=== PATIENT | male | born 1945 | race Caucasian/White ===

== ENCOUNTER → 2017-04-30 | Outpatient (CLI) | payer OTHER ==
[~2017-04-30] MED LIST: BNT10 PO; CLC6 PO; GADAVIST IV PRN; METO25TA56 PO; OMEG10007 PO; PRED20TA PO; SIMV40TA2 PO
--- NOTE | 2017-04-30 12:42 | DIAGNOSTIC IMAGING REPORT ---
MR ANGIOGRAM OF THE BRAIN CLINICAL HISTORY: Migraine headache. COMPARISON STUDY: MRI of the brain dated 04/30/2017. TECHNIQUE: 3-D [id number] MR angiography of the intracranial circulation is performed. 3-D tumble views are created and assessed. IV contrast was not administered for this examination. FINDINGS: A left posterior communicating artery is identified. The internal carotid arteries are widely patent bilaterally, as are the anterior and middle cerebral arteries. The vertebrobasilar system and posterior cerebral arteries are widely patent. The vertebral arteries are codominant. There is no aneurysm, high-grade stenosis, or focal vessel cutoff seen throughout the intracranial circulation. The brain parenchyma is normal as visualized. IMPRESSION: Unremarkable MR angiogram of the brain. Electronically signed by: Jean Carlos Stern M.D. 04/30/2017 12:41 PM Dictated Date/Time: 04/30/2017 12:38 PM
--- NOTE | 2017-04-30 13:17 | DIAGNOSTIC IMAGING REPORT ---
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 TECHNIQUE: Multisequence, multiplanar MR imaging of the brain was performed before and after the administration of intravenous contrast. IV contrast: 6.5 mL of Gadavist. COMPARISON: 07/06/2007. FINDINGS: Proportional ventricular and sulcal prominence, likely age-related parenchymal volume loss. Brain parenchyma normal in appearance with preserved vences-white differentiation. No mass effect or midline shift. No restricted diffusion to suggest acute ischemia. No hemorrhage. No extra-axial fluid collection. 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 T2 skull base flow voids preserved. No abnormal parenchymal enhancement. Bone marrow signal intensity within the calvarium within normal limits. IMPRESSION: 1. No acute intracranial pathology. No abnormal enhancement. Electronically signed by: Misha Gil M.D. 04/30/2017 1:15 PM Dictated Date/Time: 04/30/2017 1:08 PM
== END | disposition home or self-care (01) ==
LOC: C.MRI 11:31
PROVIDERS: ATTEND Psychiatry & Neurology Neurology
DX: G45.0 Vertebro-basilar artery syndrome (principal); G43.109 Migraine with aura, not intractable, without status migrainosus

== ENCOUNTER 2020-04-02 13:29 | Inpatient (IN) ==
--- OUTSIDE RECORDS SUMMARY | 2020-04-02 13:31 | External Medical Summary | Continuity of Care Document ---
:1945 Author Name Bessie Morel Address Unavailable Unavailable , Care Team Providers Name Role Phone Shahbaz Morel Unavailable [email or web address] Unavailable Unavailable Problems Active medical history not documented Allergies and Adverse Reactions Allergy history not documented Medications Medications not documented Procedures Procedures not documented Immunizations Immunizations not documented Plan of Treatment Planned Observations Planned Goals not documented Results No Known Results Results not documented
--- OUTSIDE RECORDS SUMMARY | 2020-04-02 13:31 | External Medical Summary | Continuity of Care Document ---
:1945 Author Name Bessie Morel Address Unavailable Unavailable , Care Team Providers Name Role Phone Shahbaz Morel Unavailable [email or web address] Unavailable Unavailable Problems Active medical history not documented Allergies and Adverse Reactions Allergy history not documented Medications Medications not documented Procedures Procedures not documented Immunizations Immunizations not documented Plan of Treatment Planned Observations Planned Goals not documented Results No Known Results Results not documented
[2020-04-02] MEDS ORDERED: SODIUM CHLORIDE 0.9% 1000ML 1,000 ML IV SCH (14:00)
[2020-04-02] MEDS ORDERED: SODIUM CHLORIDE 0.9% 1000ML 1,000 ML IV ONE (14:13)
[2020-04-02] MEDS ORDERED: ONDANSETRON INJ 2 MG/ML 2 ML VIAL IV STA (14:15)
[2020-04-02 14:32] LABS: Basophils # (auto) 0.01 K/uL (0-0.2); Basophils % (auto) 0.1 %; Eosinophils # (auto) 0.06 K/uL (0-0.5); Eosinophils % (auto) 0.3 %; Hemoglobin 14.9 g/dL (14.0-18.0); Immature Granulocytes # (auto) 0.07 K/uL (0.00-0.02); Immature Granulocytes % (auto) 0.4 %; Lymphocytes # (auto) 1.07 K/uL (1.2-3.4); Lymphocytes % (auto) 6.1 %; Mean Corpuscular Hemoglobin 31.8 pg (25-34); Mean Corpuscular Hgb Conc 34.7 g/dL (32-36); Mean Corpuscular Volume 91.7 fL (80-100); Mean Platelet Volume 10.3 fL (7.4-10.4); Monocytes # (auto) 0.93 K/uL (0.11-0.59); Monocytes % (auto) 5.3 %; Neutrophils # (auto) 15.43 K/uL (1.4-6.5); Neutrophils % (auto) 87.8 %; Platelet Count 297 K/uL (130-400); RDW Coefficient of Variation 13.8 % (11.5-14.5); RDW Standard Deviation 45.9 fL (36.4-46.3); Red Blood Count 4.69 M/uL (4.7-6.1); White Blood Count 17.57 K/uL (4.8-10.8)
[2020-04-02] MEDS ORDERED: HYDROmorphone INJ 0.5 MG/0.5 ML SYR IV STA ×2 (14:34→15:48)
[2020-04-02] MEDS ORDERED: IOVERSOL 100ml IV ONE (14:47)
[2020-04-02 14:49] LABS: Albumin Level 3.7 gm/dl (3.4-5.0); Calcium 10.3 mg/dl (8.5-10.1); Creatinine Clr Calc Pharmacy 65.2 ml/min; Est GFR (African American) 93.5; Est GFR (Non-African American) 80.7; Potassium 3.4 mmol/L (3.5-5.1)
[2020-04-02 14:52] LABS: Globulin 3.6 gm/dl (2.5-4.0); Total Protein 7.3 gm/dl (6.4-8.2)
--- NOTE | 2020-04-02 15:30 | CT Scan Report ---
ABDOMEN AND PELVIS CT WITH IV CONTRAST CT DOSE: 293.89 mGy.cm HISTORY: Acute generalized abdominal pain with history of Crohn's disease Crohns, V, abd pain today TECHNIQUE: Multiaxial CT images of the abdomen and pelvis were performed following the IV administrat ion of 94 cc of Optiray 320, A dose lowering technique was utilized adhering to the principles of AL SANDEEP. COMPARISON STUDY: CT abdomen and pelvis 04/18/2011 FINDINGS: Lung bases are clear. No pneumatosis or pneumoperitoneum. The imaged inferior cardiac chambers are un remarkable. The spleen, mildly atrophic pancreas, adrenal glands, and gallbladder appear unremarkable . 9 mm probable cyst of the left hepatic lobe. Course calcification of the posterior right hepatic lo be. See of the hepatic and portal veins. Subcentimeter bilateral renal hypodensities suggest probable cysts. 11 mm cyst of the interpolar righ t kidney. 5 mm nonobstructing calculus of the interpolar right kidney. There are several punctate non obstructing calculi of the left kidney. No ureteral calculi or obstructive uropathy. Prostamegaly wit h partial urinary bladder distention. No aortic aneurysm or adenopathy. Moderate to marked fluid-filled gastric distention. Dilated small bowel air-fluid levels measure up t o 3.3 cm. The terminal ileum is decompressed. There is a long segment of terminal ileum wall thickeni ng with mucosal hyperemia. Luminal narrowing involves the ilium on image 287 series 3 and image 290 s eries 3 with dilated loop of bowel seen proximal to this. Mild interloop edema within the right midab domen. Colonic diverticulosis without acute diverticulitis. Wall thickening with ahaustral fold patte rn involves the splenic flexure on image 188 series 3. Moderate fecal retention. Noninflamed appendix . Mural fibrofatty changes of the terminal ileum. Trace free fluid of the right pericolic gutter and dependent pelvis. Unremarkable soft tissues. Bones appear intact. 8 mm sclerotic focus of the right sacrum suggest prob able bone island. IMPRESSION: 1. High-grade small bowel obstruction with transition point involving a loop of ileum, likely seconda ry to adhesions versus small bowel stricture. 2. Reactive interloop edema with trace abdominal pelvic ascites. No pneumatosis or pneumoperitoneum. 3. Long segment wall thickening of the terminal ileum with wall thickening of the splenic flexure sug gest acute inflammatory skin lesions associated with patient's reported clinical history of Crohn's d isease. 4. Nonobstructing bilateral nephrolithiasis. 5. Additional findings as above. ACT 112: Negative or not required by law. The above report was generated using voice recognition software. It may contain grammatical, syntax o r spelling errors. Electronically signed by: Chris Fabian M.D. 04/02/2020 3:28 PM
[2020-04-02] MEDS ORDERED: PIPERACILLIN/TAZOBACTAM 4.5 GM/120 ML BAG IV ONE (15:48)
[2020-04-02] MEDS ORDERED: PIPERACILL/TAZOBAC CONSULT ACTIVE PRN (15:48)
[2020-04-02] MEDS ORDERED: ONDANSETRON INJ 2 MG/ML 2 ML VIAL ONE (16:23)
[2020-04-02] MEDS ORDERED: ONDANSETRON INJ 2 MG/ML 2 ML VIAL IV PRN (16:37)
[2020-04-02] MEDS ORDERED: ZOLPIDEM TARTRATE 5 MG TAB PO PRN (16:37)
[2020-04-02 16:51] LABS: Appearance Urine Clear (Clear); Bilirubin Urine Negative (Negative); Blood Urine Negative (Negative); Color Urine Yellow; Glucose Urine UA Negative (Negative); Ketones Urine Negative (Negative); Leukocyte Esterase Urine Negative (Negative); Nitrite Urine Negative (Negative); Protein Urine Negative (Negative); Specific Gravity Urine > 1.045 (1.000-1.030); Urobilinogen Urine Negative (Negative); pH Urine 6.5 (4.5-7.5)
--- NOTE | 2020-04-02 16:55 | History & Physical Report ---
Date of Service April 02, 2020 Assessment & Plan (1) Small bowel obstruction: Symptomatic since last evening CT of the abdomen and pelvis revealed high-grade small bowel obstruction with transition point involving a loop of ileum, likely secondary to adhesions versus small bowel stricture We will keep him n.p.o. and NG tube with low suction Pain medications as needed Intravenous Zosyn for possible infection with increasing white count GI and surgery have been consulted (2) Crohn disease: History of Crohn's disease without any treatment for the last 9 years EGD and colonoscopy about 5 weeks ago were unremarkable CT of the chest and abdomen about 6 weeks ago were unremarkable as well No symptoms of active Crohn's at this time except SBO with edema of the intestine on CAT scan Will likely need intravenous steroid Await GI input (3) Lumbar disc herniation: History of lumbar disc herniation and recent course of Medrol Dosepak Has been on gabapentin for pain control (4) Dyslipidemia: Has been on a statin (5) A-fib: Atrial fibrillation not on any anticoagulation We will get EKG to document the rhythm We will give intravenous Lopressor while n.p.o. DVT prophylaxis Subcu heparin Status Full History of Present Illness Chief Complaint: Abdominal pain, distention with nausea and vomiting since last evening Primary Care Provider: Maria T Green, He is a 74-year-old male with significant past medical history of Crohn's disease-inactive for the last 9 years, hypertension, hyperlipidemia, history of atrial fibrillation and lumbar disc herniation has been complaining of abdominal discomfort with distention since last evening. His symptoms started following suffer last evening and discomfort continued throughout the night. He has had nausea with 2 episodes of vomiting until he came to the emergency room. He has had 1 bowel movement since last night. He denies any fever and/or chills. Denies any abnormalities in his bowel movement. No other extraintestinal manifestations of Crohn's. Denies any chest pain, palpitation or shortness of breath. Noted to have high-grade small bowel obstruction on CT of the abdomen and pelvis and following that GI and surgery services were consulted and he was admitted to telemetry unit for continuation of care. Allergies Allergy/AdvReac Type Severity Reaction Status Date / Time mercaptopurine AdvReac PANCREATITI Unverified 04/02/20 15:33 S mesalamine [From Lialda] AdvReac PERICARDITI Unverified 04/02/20 15:31 S Home Medications Home Medications Medication Instructions Recorded Confirmed Type atenolol 25 mg PO DAILY 04/02/20 04/02/20 History atorvastatin 10 mg PO DAILY 04/02/20 04/02/20 History cholecalciferol (vitamin D3) 50 mcg PO DAILY 04/02/20 04/02/20 History coenzyme Q10 [CoQ-10] 100 mg PO DAILY 04/02/20 04/02/20 History gabapentin 300 mg PO HS 04/02/20 04/02/20 History lutein 0 mg PO DAILY 04/02/20 04/02/20 History multivitamin [Multiple Vitamin] 1 tab PO DAILY 04/02/20 04/02/20 History omega-3 fatty acids [Fish Oil] 1,000 mg PO DAILY 04/02/20 04/02/20 History ondansetron HCl 8 mg PO DAILY PRN 04/02/20 04/02/20 History potassium chloride 10 meq PO BID 04/02/20 04/02/20 History terazosin 1 mg PO BID 04/02/20 04/02/20 History Past Med/Surg History Medical History (Updated 04/02/20 @ 16:50 by Melanie Bernstein MD) A-fib Crohn disease Dyslipidemia Lumbar disc herniation Social History Smoking Status: Former smoker current occupational status: employed current occupation: Psychiatrist Feels Safe at Home: Yes Review of Systems Review of Systems: All systems reviewed & are unremarkable except as noted in HPI & below Physical Exam Physical Exam: Lying in bed comfortably but anxious Constitutional: well developed, well nourished and + acute distress (Abdominal distention and discomfort with nausea); not ill appearing Eyes: PERRL, conjunctivae normal, anicteric sclerae ENMT: external ear and nose normal, oropharynx normal Neck: trachea midline, no thyromegaly Respiratory: no respiratory distress Auscultation: lungs clear to auscultation bilaterally Cardiovascular: Rate/Rhythm: regular rate and regular rhythm Heart Sounds: no murmur Extremities: no edema Gastrointestinal (Abdomen): Inspection/Auscultation: + abdomen distended and normal bowel sounds Percussion/Palpation: + abdomen tender (Epigastrium) and abdomen soft Musculoskeletal: No acute arthritis in any joint Neurologic: Alert, awake and oriented x3. No focal sensory and/or motor deficit appreciated Psychiatric: A+Ox3, euthymic affect Lymphatic: no cervical or axillary lymphadenopathy Results & Data Results & Data ([facility]) Vital Signs (Past 12 Hours) Vital Signs Temp Pulse Resp BP Pulse Ox 04/02/20 14:30 63 17 135/77 04/02/20 14:14 17 156/89 H 04/02/20 13:35 36.7 C 76 20 132/77 98 Laboratory Results Short CBC 04/02/20 Range/Units 14:10 WBC 17.57 H (4.8-10.8) K/uL Hgb 14.9 (14.0-18.0) g/dL Hct 43.0 (42-52) % Plt Count 297 (130-400) K/uL BMP 04/02/20 14:10 Sodium 141 Potassium 3.4 L Chloride 106 Carbon Dioxide 28 BUN 23 H Creatinine 0.94 Glucose 132 H Calcium 10.3 H Liver Function 04/02/20 Range/Units 14:10 Total Bilirubin 1.0 (0.2-1) mg/dl AST 18 (15-37) U/L ALT 18 (12-78) U/L Alkaline Phosphatase 69 (45-117) U/L Albumin 3.7 (3.4-5.0) gm/dl Medications Administered Current Inpatient Medications Sodium Chloride (Nss 1000ml) 1,000 mls @ 125 mls/hr IV .Q8H ADELITA Stop: 05/02/20 13:59 Potassium Chloride/Sodium Chloride (Normal Saline W/20 Meq Kcl) 20 meq in 1,000 mls @ 100 mls/hr IV .Q10H ADELITA Stop: 05/02/20 16:44 Miscellaneous Information (Piperacill/Tazobac Consult Active) 1 ea N/A UD PRN PRN Reason: Consult Stop: 05/02/20 15:47 Morphine Sulfate (Morphine Sulfate 2 Mg/Ml Carp) 2 mg IV Q3H PRN PRN Reason: Chest Pain Stop: 04/16/20 16:36 Ondansetron HCl (Ondansetron Inj 2 Mg/Ml 2 Ml Vial) 4 mg IV Q6H PRN PRN Reason: Nausea Stop: 05/02/20 16:36 Zolpidem Tartrate (Zolpidem Tartrate 5 Mg Tab) 5 mg PO HS PRN PRN Reason: Sleep Stop: 05/02/20 16:36 Code Status & VTE Plan VTE Prophylaxis Plan VTE Prophylaxis will be ordered: Yes
--- NOTE | 2020-04-02 17:35 | XRay Report ---
XR chest 1V portable HISTORY: 74 years-old Male pre-op preoperative exam. No acute chest complaints COMPARISON: Chest radiograph 04/11/2011 TECHNIQUE: Portable AP view the chest FINDINGS: Cardiomediastinal and hilar silhouettes are within normal limits. Enteric tube is present with distal tip coursing below the diaphragm within the expected location of the proximal stomach. No pneumothor ax, pleural effusion, airspace consolidation or overt pulmonary edema. Bones of the chest appear mckenzie sly intact. IMPRESSION: 1. No acute processes of the chest. 2. Distal tips of enteric tube projects over the expected location of the mid stomach. ACT 112: Negative or not required by law. The above report was generated using voice recognition software. It may contain grammatical, syntax o r spelling errors. Electronically signed by: Chris Fabian M.D. 04/02/2020 5:33 PM
--- NOTE | 2020-04-02 17:46 | Emergency Department Note ---
History of Present Illness General Chief complaint: Abdominal Pain Stated complaint: ABD PAIN,NAUSEA,VOMITING Time Seen by Provider: 04/02/20 13:41 Source: patient and RN notes reviewed Mode of arrival: ambulatory Limitations: no limitations History of Present Illness Provider complaint: Abdominal pain, vomiting, history of Crohn's Maximum Pain Intensity: 3 This patient is a 74-year-old male with a history of Crohn's disease who presents to the emergency department with complaints of vomiting that woke him from sleep at approximately 4 AM. Since that time the patient has had some colicky abdominal pain and some distention. He was able to have 1 formed bowel movement. Patient states his Crohn's disease has been relatively well controlled and mild. He had developed some side effects from medications in the past and currently does not take any medications to control his inflammatory bowel disease. Patient denies any fevers, chills, blood in the emesis or stools. He states he follows with Dr. Crandall. Home Medications Home Medications Medication Instructions Recorded Confirmed Type atenolol 25 mg PO DAILY 04/02/20 04/02/20 History atorvastatin 10 mg PO DAILY 04/02/20 04/02/20 History cholecalciferol (vitamin D3) 50 mcg PO DAILY 04/02/20 04/02/20 History coenzyme Q10 [CoQ-10] 100 mg PO DAILY 04/02/20 04/02/20 History gabapentin 300 mg PO HS 04/02/20 04/02/20 History lutein 0 mg PO DAILY 04/02/20 04/02/20 History multivitamin [Multiple Vitamin] 1 tab PO DAILY 04/02/20 04/02/20 History omega-3 fatty acids [Fish Oil] 1,000 mg PO DAILY 04/02/20 04/02/20 History ondansetron HCl 8 mg PO DAILY PRN 04/02/20 04/02/20 History potassium chloride 10 meq PO BID 04/02/20 04/02/20 History terazosin 1 mg PO BID 04/02/20 04/02/20 History Allergies Allergy/AdvReac Type Severity Reaction Status Date / Time mercaptopurine AdvReac PANCREATITI Unverified 04/02/20 15:33 S mesalamine [From Lialda] AdvReac PERICARDITI Unverified 04/02/20 15:31 S Past Med/Surg History Medical History A-fib Crohn disease Dyslipidemia Lumbar disc herniation Social History Smoking Status: Never smoker Hx Alcohol Use: Yes Alcohol type: wine Hx Substance Use: No Preferred Language: Czech 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 and A total of 10 systems reviewed and were otherwise negative Physical Exam Vital Signs Vital Signs - 24 hr 04/02/20 13:35 04/02/20 14:14 04/02/20 14:30 Temperature 36.7 C Temperature Source Oral Pulse Rate 76 63 Pulse Rate [Apical] Pulse Rhythm Regular Pulse Strength Normal Respiratory Rate 20 17 17 Respiratory Effort / Characteristics Non-Labored Spontaneous Respiratory Depth Normal Respiratory Pattern Regular Blood Pressure 132/77 156/89 H 135/77 Blood Pressure [Right Arm] Blood Pressure Mean 95 101 85 Blood Pressure Mean [Right Arm] Pulse Oximetry 98 Oxygen Delivery Method Room Air Sepsis Recent Fever Within 48 Hours No Sepsis New/Unexplained Change in Mental Status N/A Sepsis Action Taken by Nursing No Action Required 04/02/20 17:21 Temperature Temperature Source Pulse Rate Pulse Rate [Apical] 69 Pulse Rhythm Pulse Strength Respiratory Rate 18 Respiratory Effort / Characteristics Respiratory Depth Respiratory Pattern Blood Pressure Blood Pressure [Right Arm] 133/79 Blood Pressure Mean Blood Pressure Mean [Right Arm] 97 Pulse Oximetry 98 Oxygen Delivery Method Room Air Sepsis Recent Fever Within 48 Hours Sepsis New/Unexplained Change in Mental Status Sepsis Action Taken by Nursing Vital signs reviewed. General: Well-appearing 74-year-old male, in no significant distress. HEENT: No scleral icterus, PERRLA, neck supple. Atraumatic. Cardiovascular: Regular rate and rhythm, no extra sounds. Pulmonary: Clear to auscultation bilaterally, normal work of breathing. Abdomen: Relatively soft, mild diffuse abdominal tenderness, positive tympany to percussion throughout, minimally distended Musculoskeletal: Atraumatic, no peripheral edema. Neurologic: Patient awake alert and oriented x 3. Skin: Warm, dry, no rash Course Administered Medications Potassium Chloride/Sodium Chloride (Normal Saline W/20 Meq Kcl) 20 meq in 1,000 mls @ 100 mls/hr IV .Q10H ADELITA Stop: 05/02/20 16:44 Last Admin: 04/03/20 23:41 Dose: 100 mls/hr Documented by: [id number] Infusion: 04/03/20 23:41 Dose: 100 mls/hr Documented by: [id number] Admin: 04/03/20 14:53 Dose: 100 mls/hr Documented by: [id number] Infusion: 04/03/20 14:53 Dose: 100 mls/hr Documented by: [id number] Admin: 04/03/20 04:53 Dose: 100 mls/hr Documented by: [id number] Infusion: 04/03/20 04:53 Dose: 100 mls/hr Documented by: [id number] Admin: 04/02/20 19:56 Dose: 100 mls/hr Documented by: [id number] Piperacillin Sod/Tazobactam (Sod 3.375 gm/ Dextrose) 115 mls @ 28.75 mls/hr IV Q8H ADELITA; Protocol Stop: 04/12/20 21:59 Last Infusion: 04/04/20 02:40 Dose: 0 mls/hr Documented by: [id number] Admin: 04/03/20 21:34 Dose: 29 mls/hr Documented by: [id number] Infusion: 04/03/20 18:54 Dose: 0 mls/hr Documented by: [id number] Admin: 04/03/20 13:28 Dose: 28.8 mls/hr Documented by: [id number] Infusion: 04/03/20 10:46 Dose: 0 mls/hr Documented by: [id number] Admin: 04/03/20 06:14 Dose: 28.8 mls/hr Documented by: [id number] Infusion: 04/03/20 01:39 Dose: 0 mls/hr Documented by: [id number] Admin: 04/02/20 21:32 Dose: 28.8 mls/hr Documented by: [id number] Methylprednisolone 20 mg/ (Syringe) 0.32 mls @ 1.5 mls/min IV BID ADELITA Stop: 05/02/20 20:59 Last Admin: 04/03/20 21:35 Dose: 1.5 mls/min Documented by: [id number] Admin: 04/03/20 08:06 Dose: 1.5 mls/min Documented by: [id number] Admin: 04/02/20 21:32 Dose: 1.5 mls/min Documented by: [id number] Famotidine 20 mg/ Syringe 5 mls @ 2.5 mls/min IV DAILY ADELITA Stop: 05/03/20 15:29 Last Admin: 04/03/20 15:32 Dose: 2.5 mls/min Documented by: [id number] Morphine Sulfate (Morphine Sulfate 2 Mg/Ml Carp) 2 mg IV Q3H PRN PRN Reason: Chest Pain Stop: 04/16/20 16:36 Last Admin: 04/03/20 20:39 Dose: 2 mg Documented by: [id number] Admin: 04/03/20 13:20 Dose: 2 mg Documented by: [id number] Admin: 04/02/20 20:42 Dose: 2 mg Documented by: [id number] Ondansetron HCl (Ondansetron Inj 2 Mg/Ml 2 Ml Vial) 4 mg IV Q6H PRN PRN Reason: Nausea Stop: 05/02/20 16:36 Last Admin: 04/03/20 13:22 Dose: 4 mg Documented by: [id number] Phenol (Chloraseptic 1.4% Soln 180 Ml Btl) 2 sprays MT Q2HWA PRN PRN Reason: Pain Stop: 05/02/20 20:32 Last Admin: 04/02/20 21:32 Dose: 2 sprays Documented by: [id number] Discontinued Medications Hydromorphone HCl (Hydromorphone Inj 0.5 Mg/0.5 Ml Syr) 0.5 mg IV NOW STA Stop: 04/02/20 14:35 Last Admin: 04/02/20 14:39 Dose: 0.5 mg Documented by: [id number] Hydromorphone HCl (Hydromorphone Inj 0.5 Mg/0.5 Ml Syr) 0.5 mg IV NOW STA Stop: 04/02/20 15:49 Last Admin: 04/02/20 16:52 Dose: 0.5 mg Documented by: [id number] Sodium Chloride (Nss 1000ml) 1,000 mls @ 125 mls/hr IV .Q8H ADELITA Stop: 05/02/20 13:59 Last Infusion: 04/02/20 19:00 Dose: 0 mls/hr Documented by: [id number] Admin: 04/02/20 16:53 Dose: 125 mls/hr Documented by: [id number] Sodium Chloride (Nss 1000ml) 1,000 mls @ 999 mls/hr IV .Q1H1M ONE Stop: 04/02/20 15:13 Last Infusion: 04/02/20 18:38 Dose: 0 mls/hr Documented by: [id number] Admin: 04/02/20 14:25 Dose: 999 mls/hr Documented by: [id number] Piperacillin Sod/Tazobactam Sod (Zosyn) 4.5 gm in 120 mls @ 240 mls/hr IV NOW ONE Stop: 04/02/20 16:17 Last Infusion: 04/02/20 18:38 Dose: 0 mls/hr Documented by: [id number] Admin: 04/02/20 16:53 Dose: 240 mls/hr Documented by: [id number] Lorazepam (Ativan) 0.25 mg in 0.5 mls @ 0.5 mls/min IV NOW STA Stop: 04/02/20 20:35 Last Admin: 04/02/20 23:15 Dose: 0.5 mls/min Documented by: [id number] Lorazepam (Ativan) 0.25 mg in 0.5 mls @ 0.5 mls/min IV NOW STA Stop: 04/03/20 20:58 Last Admin: 04/03/20 23:40 Dose: 0.5 mls/min Documented by: [id number] Ioversol (Ioversol 100ml) 94 ml IV ONCE ONE Stop: 04/02/20 14:48 Last Admin: 04/02/20 14:47 Dose: 94 ml Documented by: [id number] Ketorolac Tromethamine (Ketorolac Tromethamine 15 Mg/Ml Vial) 15 mg IV NOW ONE Stop: 04/02/20 22:24 Last Admin: 04/02/20 22:43 Dose: 15 mg Documented by: [id number] Ketorolac Tromethamine (Ketorolac Tromethamine 15 Mg/Ml Vial) 15 mg IM Q8H PRN PRN Reason: Pain Stop: 04/04/20 07:42 Last Admin: 04/03/20 23:40 Dose: 15 mg Documented by: [id number] Admin: 04/03/20 15:35 Dose: 15 mg Documented by: [id number] Admin: 04/03/20 08:05 Dose: 15 mg Documented by: [id number] Lorazepam (Lorazepam 2 Mg/4 Ml Vial) Confirm Administered Dose 2 mg .ROUTE .STK- MED ONE Stop: 04/02/20 23:14 Last Admin: 04/02/20 23:28 Dose: Not Given Documented by: [id number] Ondansetron HCl (Ondansetron Inj 2 Mg/Ml 2 Ml Vial) 4 mg IV NOW STA Stop: 04/02/20 14:16 Last Admin: 04/02/20 14:25 Dose: 4 mg Documented by: [id number] Ondansetron HCl (Ondansetron Inj 2 Mg/Ml 2 Ml Vial) Confirm Administered Dose 4 mg .ROUTE .ST[place]-MED ONE Stop: 04/02/20 16:24 Last Admin: 04/02/20 16:53 Dose: 4 mg Documented by: [id number] Medical Decision Making Differential Diagnosis Gastroenteritis, food borne illness, infections, appendicitis, diverticulitis, inflammatory bowel disease, obstruction, GI bleed, biliary pathology, volvulus, as well as other pathologies. Medical Records Attestation: I reviewed the patient's medical records. Home Medications Current Medication List: was personally reviewed by me Laboratory Data Attestation: I reviewed the patient's lab results. Result diagrams: 04/03/20 07:04 04/03/20 07:04 Lab Results 04/02/20 04/02/20 04/02/20 Range/Units 14:10 14:10 16:20 WBC 17.57 H (4.8-10.8) K/uL RBC 4.69 L (4.7-6.1) M/uL Hgb 14.9 (14.0-18.0) g/dL Hct 43.0 (42-52) % MCV 91.7 (80-100) fL MCH 31.8 (25-34) pg MCHC 34.7 (32-36) g/dL RDW Std Deviation 45.9 (36.4-46.3) fL RDW Coeff of Chang 13.8 (11.5-14.5) % Plt Count 297 (130-400) K/uL MPV 10.3 (7.4-10.4) fL Immature Gran % (Auto) 0.4 % Neut % (Auto) 87.8 % Lymph % (Auto) 6.1 % [place] % (Auto) 5.3 % Eos % (Auto) 0.3 % Baso % (Auto) 0.1 % Neut # (Auto) 15.43 H (1.4-6.5) K/uL Lymph # (Auto) 1.07 L (1.2-3.4) K/uL [place] # (Auto) 0.93 H (0.11-0.59) K/uL Eos # (Auto) 0.06 (0-0.5) K/uL Baso # (Auto) 0.01 (0-0.2) K/uL Immature Gran # (Auto) 0.07 H (0.00-0.02) K/uL Sodium 141 (136-145) mmol/L Potassium 3.4 L (3.5-5.1) mmol/L Chloride 106 (98-107) mmol/L Carbon Dioxide 28 (21-32) mmol/L Anion Gap 7.0 (3-11) BUN 23 H (7-18) mg/dl Creatinine 0.94 (0.6-1.4) mg/dl Est Cr Clr Drug Dosing 65.2 ml/min Est GFR ( Amer) 93.5 Est GFR (Non-Af Amer) 80.7 BUN/Creatinine Ratio 24.0 H (10-20) Glucose 132 H (70-99) mg/dl Calcium 10.3 H (8.5-10.1) mg/dl Total Bilirubin 1.0 (0.2-1) mg/dl AST 18 (15-37) U/L ALT 18 (12-78) U/L Alkaline Phosphatase 69 (45-117) U/L Total Protein 7.3 (6.4-8.2) gm/dl Albumin 3.7 (3.4-5.0) gm/dl Globulin 3.6 (2.5-4.0) gm/dl Albumin/Globulin Ratio 1.0 (0.9-2) Lipase 48 L (73-393) U/L Urine Color Yellow Urine Appearance Clear (Clear) Urine pH 6.5 (4.5-7.5) Ur Specific [place] > 1.045 H (1.000-1.030) Urine Protein Negative (Negative) Urine Glucose (UA) Negative (Negative) Urine Ketones Negative (Negative) Urine Blood Negative (Negative) Urine Nitrite Negative (Negative) Urine Bilirubin Negative (Negative) Urine Urobilinogen Negative (Negative) Ur Leukocyte Esterase Negative (Negative) Imaging Data Radiologist's Impression: ABDOMEN AND PELVIS CT WITH IV CONTRAST CT DOSE: 293.89 mGy.cm HISTORY: Acute generalized abdominal pain with history of Crohn's disease Crohns, V, abd pain today TECHNIQUE: Multiaxial CT images of the abdomen and pelvis were performed following the IV administration of 94 cc of Optiray 320, A dose lowering technique was utilized adhering to the principles of ALARA. COMPARISON STUDY: CT abdomen and pelvis 04/18/2011 FINDINGS: Lung bases are clear. No pneumatosis or pneumoperitoneum. The imaged inferior cardiac chambers are unremarkable. The spleen, mildly atrophic pancreas, adrenal glands, and gallbladder appear unremarkable. 9 mm probable cyst of the left hepatic lobe. Course calcification of the posterior right hepatic lobe. See of the hepatic and portal veins. Subcentimeter bilateral renal hypodensities suggest probable cysts. 11 mm cyst of the interpolar right kidney. 5 mm nonobstructing calculus of the interpolar right kidney. There are several punctate nonobstructing calculi of the left kidney. No ureteral calculi or obstructive uropathy. Prostamegaly with partial urinary bladder distention. No aortic aneurysm or adenopathy. Moderate to marked fluid-filled gastric distention. Dilated small bowel air-flui d levels measure up to 3.3 cm. The terminal ileum is decompressed. There is a long segment of terminal ileum wall thickening with mucosal hyperemia. Luminal narrowing involves the ilium on image 287 series 3 and image 290 series 3 with dilated loop of bowel seen proximal to this. Mild interloop edema within the right midabdomen. Colonic diverticulosis without acute diverticulitis. Wall thickening with ahaustral fold pattern involves the splenic flexure on image 188 series 3. Moderate fecal retention. Noninflamed appendix. Mural fibrofatty changes of the terminal ileum. Trace free fluid of the right pericolic gutter and dependent pelvis. Unremarkable soft tissues. Bones appear intact. 8 mm sclerotic focus of the right sacrum suggest probable bone island. IMPRESSION: 1. High-grade small bowel obstruction with transition point involving a loop of ileum, likely secondary to adhesions versus small bowel stricture. 2. Reactive interloop edema with trace abdominal pelvic ascites. No pneumatosis or pneumoperitoneum. 3. Long segment wall thickening of the terminal ileum with wall thickening of the splenic flexure suggest acute inflammatory skin lesions associated with patient's reported clinical history of Crohn's disease. 4. Nonobstructing bilateral nephrolithiasis. 5. Additional findings as above. ACT 112: Negative or not required by law. The above report was generated using voice recognition software. It may contain grammatical, syntax or spelling errors. Electronically signed by: Chris Fabian M.D. 04/02/2020 3:28 PM Dictated: 04/02/201513 Transcribed: 04/02/201513 ECG Data Attestation: I personally reviewed and interpreted this ECG as follows: Indication: + vomiting Rate (beats per minute): 61 Rhythm: + normal sinus ECG Intervals/blocks: + Normal QT-c ECG Strawn: + Normal ECG ST segments: + Nonspecific ST abnormalities (lateral) ECG Findings: no PACs and no PVCs Blood Pressure Blood Pressure Findings: Elevated blood pressure Blood Pressure Disposition: did not require urgent referral MDM Narrative This patient was evaluated and appeared to be in no significant distress. IV access was obtained and laboratory work was drawn. An order for cardiac monitoring was placed and the patient was noted to be in a normal sinus rhythm at 63 bpm. EKG was performed and reveals nonspecific T wave abnormalities in the lateral leads, no evidence of acute ischemia. Laboratory work reveals a leukocytosis. Patient was given IV Dilaudid and Zofran for his discomfort. IV hydration was initiated. Patient had no further vomiting however was nauseated with cramping abdominal pain. His physical examination was fairly reassuring. His abdomen was fairly soft however there was some notable tympany. Abdominal CT scan reveals evidence of a high-grade bowel obstruction with a transition point at the ileum. An NG tube was ordered to low intermittent wall suction. Patient was given a second dose of IV Dilaudid and Zofran for his discomfort. He was medicated with IV Zosyn due to the leukocytosis and history of inflammatory bowel disease. Consultation was placed with gastroenterology, Dr. Coker as well as general surgery, Dr. Poole. Patient will be evaluated by the hospitalist service for admission and further management. Patient is aware of the plan and agrees. Impression & Plan Small bowel obstruction, Crohn disease Discharge Plan Visit Data Chief Complaint: Abdominal Pain Stated Complaint: ABD PAIN,NAUSEA,VOMITING ED Provider: My Morgan Discharge Problem: Small bowel obstruction, Crohn disease Patient Disposition: Admitted As Inpatient Discharge Instructions Interventions: ED Discharge Assessment Last Done: 04/02/20 17:42 Discharge Problem: Crohn disease Qualifiers: Gastrointestinal tract location: unspecified location Digestive disease complication type: with intestinal obstruction Qualified Code(s): K50.912 - Crohn's disease, unspecified, with intestinal obstruction
[2020-04-02] MEDS: NSS + 20MEQ KCL 20 MEQ/1,000 ML BAG IV SCH (19:56)
[2020-04-02] MEDS ORDERED: CHLORASEPTIC 1.4% SOLN 180 ML BTL MT PRN (20:33)
[2020-04-02] MEDS ORDERED: LORazepam 0.25 MG/0.5 ML VIAL IV STA (20:34)
[2020-04-02] MEDS: MoRPHine SULFATE 2 MG/ML CARP IV PRN (20:42)
[2020-04-02] MEDS: PIPERACILLIN/TAZOBACTAM 3.375 GM in DEXTROSE 5% 100 ML IV SCH (21:32)
[2020-04-02] MEDS: methylPREDNISolone 20 MG in SYRINGE 0 ML IV SCH (21:32)
[2020-04-02] MEDS ORDERED: KETOROLAC TROMETHAMINE 15 MG/ML VIAL IV ONE (22:23)
[2020-04-02] MEDS ORDERED: LORazepam 2 MG/4 ML VIAL ONE (23:13)
[2020-04-03] MEDS: NSS + 20MEQ KCL 20 MEQ/1,000 ML BAG IV SCH ×3 (04:53→23:41)
[2020-04-03] MEDS: PIPERACILLIN/TAZOBACTAM 3.375 GM in DEXTROSE 5% 100 ML IV SCH ×3 (06:14→21:34)
[2020-04-03 07:41] LABS: Eosinophils # (auto) 0.01 K/uL (0-0.5); Eosinophils % (auto) 0.1 %; Hematocrit (blood only) 39.1 % (42-52); Hemoglobin 13.1 g/dL (14.0-18.0); Immature Granulocytes # (auto) 0.03 K/uL (0.00-0.02); Immature Granulocytes % (auto) 0.2 %; Lymphocytes # (auto) 0.75 K/uL (1.2-3.4); Lymphocytes % (auto) 5.5 %; Mean Corpuscular Hemoglobin 31.3 pg (25-34); Mean Corpuscular Hgb Conc 33.5 g/dL (32-36); Mean Corpuscular Volume 93.3 fL (80-100); Mean Platelet Volume 10.4 fL (7.4-10.4); Monocytes % (auto) 3.7 %; Neutrophils # (auto) 12.24 K/uL (1.4-6.5); Neutrophils % (auto) 90.5 %; Platelet Count 241 K/uL (130-400); RDW Coefficient of Variation 13.8 % (11.5-14.5); RDW Standard Deviation 47.1 fL (36.4-46.3); Red Blood Count 4.19 M/uL (4.7-6.1); White Blood Count 13.53 K/uL (4.8-10.8)
[2020-04-03] MEDS: KETOROLAC TROMETHAMINE 15 MG/ML VIAL IM PRN ×3 (08:05→23:40)
[2020-04-03] MEDS: methylPREDNISolone 20 MG in SYRINGE 0 ML IV SCH ×2 (08:06→21:35)
[2020-04-03 08:27] LABS: BUN Creatinine Ratio 26.2 (10-20); Creatinine Clr Calc Pharmacy 70.5 ml/min; Est GFR (African American) 99.9; Est GFR (Non-African American) 86.2; Magnesium 2.3 mg/dl (1.8-2.4); Potassium 3.8 mmol/L (3.5-5.1)
[2020-04-03 08:29] LABS: Albumin Globulin Ratio 0.9 (0.9-2); Bilirubin,Total 0.9 mg/dl (0.2-1); Globulin 3.2 gm/dl (2.5-4.0); Phosphorus 3.3 mg/dl (2.5-4.9); Total Protein 6.2 gm/dl (6.4-8.2)
--- NOTE | 2020-04-03 09:06 | Surgery Consultation ---
Date of Consultation April 03, 2020 Assessment & Plan (1) Small bowel obstruction: This is a 74y M with a PMH of afib and Crohn's (diagnosed in 2010) who presented to the [facility] ED on 04/02/20 with complaints of abdominal pain, nausea/vomiting. Workup in the ER with a CT a/p has shown a high-grade small bowel obstruction with transition point involving a loop of ileum, likely secondary to adhesions versus small bowel stricture. WBC 13 from 17 yesterday after being started on zosyn. Patient has an NGT in place that has put out >1.3L thus far. He notes marked improvement in his symptoms. His abdomen is soft, non tender, and non-distended. He says he is starting to pass some flatus, no BM yet. Agree with GI consultation for Crohn's history. It appears he has been started on some IV steroids. For now continue conservative measures with NPO and NGT until meaningful return of bowel function. No plans for surgical intervention at this time. as above. no indication for emergent surgery. surgery should be last resort. will continue to follow along. continue current care History of Present Illness Attending Physician: Penny Monique MD History of Present Illness This is a 74y M with a PMH of Crohn's (diagnosed in 2010) who presented to the [facility] ED on 04/02/20 with complaints of abdominal pain, nausea/vomiting. Patient reports starting last Friday evening he started feeling tension and pain in his abdominal primarily around his belly button region, and started getting "queasy". The symptoms increased in severity and he ended up vomiting at 1am and 4am. On Friday he decided to come to the ER for evaluation. In the ER patient underwent a CT a/p that revealed a high-grade small bowel obstruction with transition point involving a loop of ileum, likely secondary to adhesions versus small bowel stricture. Patient also reported + abdominal bloating. His last BM was Friday evening. He denies any fever/chills, chest pain, shortness of breath. His prior surgical history includes a R inguinal hernia repair and a left inguinal hernia repair about 3 years ago. Patient reports he did undergo a colonoscopy and EGD about 5 weeks ago for workup of unexplained weight loss that he said showed no new changes from prior. Patient was admitted under medicine and an NGT was placed and reports improvement in his symptoms. Allergies Allergy/AdvReac Type Severity Reaction Status Date / Time mercaptopurine AdvReac PANCREATITI Unverified 04/02/20 15:33 S mesalamine [From Lialda] AdvReac PERICARDITI Unverified 04/02/20 15:31 S Home Medications Home Medications Medication Instructions Recorded Confirmed Type atenolol 25 mg PO DAILY 04/02/20 04/02/20 History atorvastatin 10 mg PO DAILY 04/02/20 04/02/20 History cholecalciferol (vitamin D3) 50 mcg PO DAILY 04/02/20 04/02/20 History coenzyme Q10 [CoQ-10] 100 mg PO DAILY 04/02/20 04/02/20 History gabapentin 300 mg PO HS 04/02/20 04/02/20 History lutein 0 mg PO DAILY 04/02/20 04/02/20 History multivitamin [Multiple Vitamin] 1 tab PO DAILY 04/02/20 04/02/20 History omega-3 fatty acids [Fish Oil] 1,000 mg PO DAILY 04/02/20 04/02/20 History ondansetron HCl 8 mg PO DAILY PRN 04/02/20 04/02/20 History potassium chloride 10 meq PO BID 04/02/20 04/02/20 History terazosin 1 mg PO BID 04/02/20 04/02/20 History Patient History Medical History A-fib Crohn disease Dyslipidemia Lumbar disc herniation Social History Smoking Status: Never smoker Hx Alcohol Use: Yes Alcohol type: wine Hx Substance Use: No Preferred Language: Tamazight Supervisor Finishing Room Required: No Beliefs That Will Affect Care: None Current Living Situation: Spouse current occupational status: employed current occupation: Psychiatrist Feels Safe at Home: Yes Safety Concerns: Feels Safe At This Time Assistive Devices: Glasses Review of Systems Constitutional: no fever and no chills Respiratory: no dyspnea Cardiovascular: no chest pain Gastrointestinal: + abdominal pain, + bloating, + nausea, + vomiting and + constipation Physical Exam Physical Exam: awake/alert Respiratory: normal respiratory effort Gastrointestinal (Abdomen): Inspection/Auscultation: abdomen not distended Percussion/Palpation: abdomen soft; abdomen nontender Results & Data ([facility]) Vital Signs (Past 12 Hours) Vital Signs Temp Pulse Pulse Resp BP Pulse Ox 04/03/20 08:49 52 L 04/03/20 07:45 36.9 C 59 L 19 126/65 95 04/03/20 04:46 36.9 C 58 L 18 112/66 94 04/02/20 23:11 37.1 C 62 18 133/73 95 [place], [place] [phone] CT Scan Report Patient: MATEUSZ CALIX Date: 04/02/20 MR#: [id number]: [address] [place] [address] Acct ID:[id number]: PO NIA 958 Date: 1945[facility] Zip: [place] [address] Age: 74Location: ED Sex: MRoom/Bed: Att Phy:Diagnosis: ABD PAIN,NAUSEA,VOMITING Carito Phy: Maria T Green DOService Date: 04/02/20 Fam Phy:Interpreting Phy: Mateusz Fabian Admit Phy: Ordering Phy: My Morgan M.D. cc: ~ ABDOMEN AND PELVIS CT WITH IV CONTRAST CT DOSE: 293.89 mGy.cm HISTORY: Acute generalized abdominal pain with history of Crohn's disease Crohns, V, abd pain today TECHNIQUE: Multiaxial CT images of the abdomen and pelvis were performed following the IV administration of 94 cc of Optiray 320, A dose lowering technique was utilized adhering to the principles of ALARA. COMPARISON STUDY: CT abdomen and pelvis 04/18/2011 FINDINGS: Lung bases are clear. No pneumatosis or pneumoperitoneum. The imaged inferior cardiac chambers are unremarkable. The spleen, mildly atrophic pancreas, adrenal glands, and gallbladder appear unremarkable. 9 mm probable cyst of the left hepatic lobe. Course calcification of the posterior right hepatic lobe. See of the hepatic and portal veins. Subcentimeter bilateral renal hypodensities suggest probable cysts. 11 mm cyst of the interpolar right kidney. 5 mm nonobstructing calculus of the interpolar right kidney. There are several punctate nonobstructing calculi of the left kidney. No ureteral calculi or obstructive uropathy. Prostamegaly with partial urinary bladder distention. No aortic aneurysm or adenopathy. Moderate to marked fluid-filled gastric distention. Dilated small bowel air- fluid levels measure up to 3.3 cm. The terminal ileum is decompressed. There is a long segment of terminal ileum wall thickening with mucosal hyperemia. Luminal narrowing involves the ilium on image 287 series 3 and image 290 series 3 with dilated loop of bowel seen proximal to this. Mild interloop edema within the right midabdomen. Colonic diverticulosis without acute diverticulitis. Wall thickening with ahaustral fold pattern involves the splenic flexure on image 188 series 3. Moderate fecal retention. Noninflamed appendix. Mural fibrofatty changes of the terminal ileum. Trace free fluid of the right pericolic gutter and dependent pelvis. Unremarkable soft tissues. Bones appear intact. 8 mm sclerotic focus of the right sacrum suggest probable bone island. IMPRESSION: 1. High-grade small bowel obstruction with transition point involving a loop of ileum, likely secondary to adhesions versus small bowel stricture. 2. Reactive interloop edema with trace abdominal pelvic ascites. No pneumatosis or pneumoperitoneum. 3. Long segment wall thickening of the terminal ileum with wall thickening of the splenic flexure suggest acute inflammatory skin lesions associated with patient's reported clinical history of Crohn's disease. 4. Nonobstructing bilateral nephrolithiasis. 5. Additional findings as above. ACT 112: Negative or not required by law. The above report was generated using voice recognition software. It may contain grammatical, syntax or spelling errors. Electronically signed by: Chris Fabian M.D. 04/02/2020 3:28 PM PG Care Time/CCT Total # of Minutes Spent Total Time Spent with Patient: Total time spent is greater than 50% in coordination of care (as documented) at patient's floor/unit and/or counseling patient: Coding Level of Care Code 26069 Initial Inpt Care Lvl 3 Diagnoses Small bowel obstruction K56.609
--- NOTE | 2020-04-03 11:16 | Electrocardiogram Report ---
Test Reason : Blood Pressure : / mmHG Vent. Rate : 061 BPM Atrial Rate : 061 BPM P-R Int : 152 ms QRS Dur : 092 ms QT Int : 422 ms P-R-T Axes : 064 000 031 degrees QTc Int : 424 ms Normal sinus rhythm Normal ECG When compared with ECG of 17-APR-2012 17:02, Nonspecific T wave abnormality, worse in Lateral leads Confirmed by Frederick Finley ([id number]) on 04/03/2020 11:16:33 AM Referred By: REFERRED SELF Confirmed By:Luis Finley
--- NOTE | 2020-04-03 12:02 | Hospitalist Progress Note ---
Date of Service April 03, 2020 Assessment & Plan (1) Small bowel obstruction: Symptomatic since last evening CT of the abdomen and pelvis revealed high-grade small bowel obstruction with transition point involving a loop of ileum, likely secondary to adhesions versus small bowel stricture SBO could be due crohn's disease Continue pain medications as needed Continue NGT drainage. NPO for now Symptoms improving Due to leukocytosis, was started on iv zosyn. Will continue this for now Surgery evaluation noted Continue conservative management for now Continue IVF for now (2) Crohn disease: History of Crohn's disease without any treatment for the last 9 years EGD and colonoscopy about 5 weeks ago were unremarkable CT of the chest and abdomen about 6 weeks ago were unremarkable as well Await GI input Continue IV methyl pred for now (3) Lumbar disc herniation: History of lumbar disc herniation and recent course of Medrol Dosepak Has been on gabapentin for pain control (4) Dyslipidemia: Has been on a statin (5) A-fib: Atrial fibrillation not on any anticoagulation EKG shows NSR DVT prophylaxis Subcu heparin Status Full Admission and Anticipated Discharge Date Admission Date: April 02, 2020 Subjective Patient seen and examined. Patient reports feeling better this AM States nausea and abd distention are resolved No abd pain at this time. Reports pain and discomfort due to NGT, controlled with prn ketorolac Passing flatus but yet to have a BM Denied any fevers, chills Denied any freq, dysuria, urgency Denied any chest pain, cough, shortness of breath Physical Exam Constitutional: + well hydrated; no acute distress Eyes: PERRL, conjunctivae normal, anicteric sclerae ENMT: NGT in situ connected to drain Respiratory: normal respiratory effort, lungs clear to auscultation Cardiovascular: RRR, no murmur, no edema Gastrointestinal (Abdomen): normal bowel sounds, soft, nontender, no hepatosplenomegaly Musculoskeletal: no cyanosis or clubbing, extremities motor strength 5/5 Neurologic: PERRL, EOMI, accommodation nl, no face palsy, no dysarthria Psychiatric: A+Ox3, euthymic affect Results & Data Results & Data ([facility]) Vital Signs (Past 12 Hours) Vital Signs Temp Pulse Pulse Resp BP Pulse Ox 04/03/20 11:28 36.8 C 63 19 127/74 95 04/03/20 08:49 52 L 04/03/20 07:45 36.9 C 59 L 19 126/65 95 04/03/20 04:46 36.9 C 58 L 18 112/66 94 Laboratory Results Laboratory Results - last 24 hr 04/02/20 04/02/20 04/02/20 14:10 14:10 16:20 WBC 17.57 H RBC 4.69 L Hgb 14.9 Hct 43.0 MCV 91.7 MCH 31.8 MCHC 34.7 RDW Std Deviation 45.9 RDW Coeff of Chang 13.8 Plt Count 297 MPV 10.3 Immature Gran % (Auto) 0.4 Neut % (Auto) 87.8 Lymph % (Auto) 6.1 Briscoe % (Auto) 5.3 Eos % (Auto) 0.3 Baso % (Auto) 0.1 Neut # (Auto) 15.43 H Lymph # (Auto) 1.07 L Briscoe # (Auto) 0.93 H Eos # (Auto) 0.06 Baso # (Auto) 0.01 Immature Gran # (Auto) 0.07 H Sodium 141 Potassium 3.4 L Chloride 106 Carbon Dioxide 28 Anion Gap 7.0 BUN 23 H Creatinine 0.94 Est Cr Clr Drug Dosing 65.2 Est GFR ( Amer) 93.5 Est GFR (Non-Af Amer) 80.7 BUN/Creatinine Ratio 24.0 H Glucose 132 H Calcium 10.3 H Phosphorus Magnesium Total Bilirubin 1.0 AST 18 ALT 18 Alkaline Phosphatase 69 Total Protein 7.3 Albumin 3.7 Globulin 3.6 Albumin/Globulin Ratio 1.0 Lipase 48 L Urine Color Yellow Urine Appearance Clear Urine pH 6.5 Ur Specific Anza > 1.045 H Urine Protein Negative Urine Glucose (UA) Negative Urine Ketones Negative Urine Blood Negative Urine Nitrite Negative Urine Bilirubin Negative Urine Urobilinogen Negative Ur Leukocyte Esterase Negative 04/03/20 04/03/20 07:04 07:04 WBC 13.53 H RBC 4.19 L Hgb 13.1 L Hct 39.1 L MCV 93.3 MCH 31.3 MCHC 33.5 RDW Std Deviation 47.1 H RDW Coeff of Chang 13.8 Plt Count 241 MPV 10.4 Immature Gran % (Auto) 0.2 Neut % (Auto) 90.5 Lymph % (Auto) 5.5 Briscoe % (Auto) 3.7 Eos % (Auto) 0.1 Baso % (Auto) 0.0 Neut # (Auto) 12.24 H Lymph # (Auto) 0.75 L Briscoe # (Auto) 0.50 Eos # (Auto) 0.01 Baso # (Auto) 0.00 Immature Gran # (Auto) 0.03 H Sodium 144 Potassium 3.8 Chloride 112 H Carbon Dioxide 28 Anion Gap 5.0 BUN 23 H Creatinine 0.87 Est Cr Clr Drug Dosing 70.5 Est GFR ( Amer) 99.9 Est GFR (Non-Af Amer) 86.2 BUN/Creatinine Ratio 26.2 H Glucose 116 H Calcium 9.0 Phosphorus 3.3 Magnesium 2.3 Total Bilirubin 0.9 AST 14 L ALT 15 Alkaline Phosphatase 56 Total Protein 6.2 L Albumin 3.0 L Globulin 3.2 Albumin/Globulin Ratio 0.9 Lipase Urine Color Urine Appearance Urine pH Ur Specific Anza Urine Protein Urine Glucose (UA) Urine Ketones Urine Blood Urine Nitrite Urine Bilirubin Urine Urobilinogen Ur Leukocyte Esterase
--- NOTE | 2020-04-03 12:53 | Gastrointestinal Consultation ---
Date of Consultation April 03, 2020 Assessment & Plan (1) Small bowel obstruction: Likely secondary to Crohn's activity vs. scarring from prior Crohn's Disease Activity. Management by surgery. Would defer to surgery for direction on when to DC NG and when to advance diet. Present on Admission?: Yes (2) Crohn disease: Crohn's has been managed by Dr. Crandall and he recently underwent EGD, colonoscopy with findings of terminal ileus and distal colon Crohn's activity. 1. Solumedrol 20mg IV Q 8hrs. 2. Encouraged pt to consider a TNF, but he is hesitant due to adverse reactions to mesalamine and mercaptopurine (pancreatitis). Pt agrees to revisit this with Dr. Crandall in the OP setting. 3. At this time, no indication to repeat endoscopy or imaging. Present on Admission?: Yes Supervising Physician Co-Signing Physician Notes I have personally seen and examined the patient with FLAQUITA Bay on 04/03/2020. Her note reflects my exam and findings. I agree with her impression and plan. Most c/w Crohn's related SBO. Conservative management at this point. Thong Jamison M.D. History of Present Illness Reason for Consultation: SBO Crohn's Requesting Physician: Dr. Fernández (ED) Attending Physician: Penny Monique MD History of Present Illness Mr. Soria is a 74-year-old male with a hx of Crohn's disease, HTN, Hyperlipidemia, A-fib and lumbar DDD who presented to the ED yesterday for abdominal pain, nausea and vomitingwhich came on fairly suddenly a day prior to arrival. CT on arrival with SBO, suggestion of Crohn's disease. Recent EGD (02/25/20) with grade A esophagitis. Recent colonoscopy (02/25/20) and path consistent with terminal ileitis and distal colon Crohn's activity (ulcer at anal verge). Allergies Allergy/AdvReac Type Severity Reaction Status Date / Time mercaptopurine AdvReac PANCREATITI Unverified 04/02/20 15:33 S mesalamine [From Lialda] AdvReac PERICARDITI Unverified 04/02/20 15:31 S Home Medications Home Medications Medication Instructions Recorded Confirmed Type atenolol 25 mg PO DAILY 04/02/20 04/02/20 History atorvastatin 10 mg PO DAILY 04/02/20 04/02/20 History cholecalciferol (vitamin D3) 50 mcg PO DAILY 04/02/20 04/02/20 History coenzyme Q10 [CoQ-10] 100 mg PO DAILY 04/02/20 04/02/20 History gabapentin 300 mg PO HS 04/02/20 04/02/20 History lutein 0 mg PO DAILY 04/02/20 04/02/20 History multivitamin [Multiple Vitamin] 1 tab PO DAILY 04/02/20 04/02/20 History omega-3 fatty acids [Fish Oil] 1,000 mg PO DAILY 04/02/20 04/02/20 History ondansetron HCl 8 mg PO DAILY PRN 04/02/20 04/02/20 History potassium chloride 10 meq PO BID 04/02/20 04/02/20 History terazosin 1 mg PO BID 04/02/20 04/02/20 History Patient History Medical History A-fib Crohn disease Dyslipidemia Lumbar disc herniation Social History Smoking Status: Never smoker Hx Alcohol Use: Yes Alcohol type: wine Hx Substance Use: No Preferred Language: Upper Sorbian Right Of [employer] Worker Required: No Beliefs That Will Affect Care: None Current Living Situation: Spouse current occupational status: employed current occupation: Psychiatrist Feels Safe at Home: Yes Safety Concerns: Feels Safe At This Time Assistive Devices: Glasses Review of Systems Review of Systems: ROS: Gen: + weight loss Eyes: No eye redness, or pain, no recent vision changes Resp: No SOB, no cough Cardio: No palpitations/irregular beats, no chest pain GI: See HPI : Denies pain on urination Skin: No jaundice, itching or new rashes Physical Exam Constitutional: WD/WN, vitals as above Eyes: PERRL, conjunctivae normal, anicteric sclerae ENMT: external ear and nose normal, oropharynx normal Neck: trachea midline, no thyromegaly Respiratory: normal respiratory effort, lungs clear to auscultation Cardiovascular: RRR, no murmur, no edema Gastrointestinal (Abdomen): Inspection/Auscultation: + hypoactive bowel sounds; abdomen not distended Percussion/Palpation: + abdomen tender (Mild RLQ tenderness) and abdomen soft Skin: no rashes, warm and dry Neurologic: PERRL, EOMI, accommodation nl, no face palsy, no dysarthria Psychiatric: A+Ox3, euthymic affect Lymphatic: no cervical or axillary lymphadenopathy Results & Data ([facility]) Vital Signs (Past 12 Hours) Vital Signs Temp Pulse Pulse Resp BP Pulse Ox 04/03/20 11:28 36.8 C 63 19 127/74 95 04/03/20 08:49 52 L 04/03/20 07:45 36.9 C 59 L 19 126/65 95 04/03/20 04:46 36.9 C 58 L 18 112/66 94 Laboratory Results WBC 13, Hb 13, HCT 39, PLT asked 241, NA 144, K3.8, BUN 23, PLT asked 0.[address] abd/pelvis with IV contrast no oral 04/02/2020: 1. High-grade small bowel obstruction with transition point involving a loop of ileum, likely secondary to adhesions versus small bowel stricture. 2. Reactive interloop edema with trace abdominal pelvic ascites. No pneumatosis or pneumoperitoneum. 3. Long segment wall thickening of the terminal ileum with wall thickening of the splenic flexure suggest acute inflammatory skin lesions associated with patient's reported clinical history of Crohn's disease. 4. Nonobstructing bilateral nephrolithiasis. 5. Additional findings as above.
[2020-04-03] MEDS: MoRPHine SULFATE 2 MG/ML CARP IV PRN ×2 (13:20→20:39)
[2020-04-03] MEDS: FAMOTIDINE 20 MG in SYRINGE 3 ML IV SCH (15:32)
[2020-04-03] MEDS ORDERED: LORazepam 0.25 MG/0.5 ML VIAL IV STA (20:57)
[2020-04-04] MEDS ORDERED: KETOROLAC TROMETHAMINE 15 MG/ML VIAL IV PRN (00:52)
[2020-04-04] MEDS: PIPERACILLIN/TAZOBACTAM 3.375 GM in DEXTROSE 5% 100 ML IV SCH (06:06)
[2020-04-04 06:22] LABS: Hematocrit (blood only) 35.2 % (42-52); Hemoglobin 11.8 g/dL (14.0-18.0); Mean Corpuscular Hemoglobin 31.3 pg (25-34); Mean Corpuscular Hgb Conc 33.5 g/dL (32-36); Mean Corpuscular Volume 93.4 fL (80-100); Mean Platelet Volume 10.2 fL (7.4-10.4); Platelet Count 229 K/uL (130-400); RDW Coefficient of Variation 13.8 % (11.5-14.5); RDW Standard Deviation 47.4 fL (36.4-46.3); Red Blood Count 3.77 M/uL (4.7-6.1); White Blood Count 13.65 K/uL (4.8-10.8)
[2020-04-04 06:53] LABS: BUN Creatinine Ratio 32.7 (10-20); Calcium 8.6 mg/dl (8.5-10.1); Creatinine Clr Calc Pharmacy 91.2 ml/min; Est GFR (African American) 111.3
[2020-04-04] MEDS: methylPREDNISolone 20 MG in SYRINGE 0 ML IV SCH ×2 (07:53→20:27)
[2020-04-04] MEDS: NSS + 20MEQ KCL 20 MEQ/1,000 ML BAG IV SCH ×2 (07:53→17:41)
[2020-04-04] MEDS: FAMOTIDINE 20 MG in SYRINGE 3 ML IV SCH (07:54)
[2020-04-04] MEDS: MoRPHine SULFATE 2 MG/ML CARP IV PRN (08:22)
--- NOTE | 2020-04-04 08:54 | XRay Report ---
KUB HISTORY: Small bowel obstruction. Follow-up. COMPARISON: Abdomen and pelvis CT 04/02/2020. FINDINGS: Nasogastric tube terminates in the proximal stomach. The fenestrated line is at the gastroe sophageal junction and should be advanced by approximately 5 cm. Moderate well-formed stool within th e colon. No dilated loops of small bowel at this time to suggest an obstruction. There is gas and sto ol seen throughout the colon and rectum. Bilateral nephrolithiasis. No pneumoperitoneum or pneumatosi s. IMPRESSION: 1. Nasogastric tube terminates at the proximal stomach. The fenestrated line is at the gastroesophage al junction and should be advanced by approximately 5 cm. 2. No dilated loops of small bowel at this time to suggest an obstruction. ACT 112: Negative or not required by law. Electronically signed by: Nico Dodge M.D. 04/04/2020 8:53 AM
--- NOTE | 2020-04-04 09:20 | Surgery Progress Note ---
Date of Service April 04, 2020 Assessment & Plan (1) Small bowel obstruction: clinically improving KUB shows no SBO will perform NGT clamping trial. d/c tube and start clears if he passes clamping trial Admission and Anticipated Discharge Date Admission Date: April 02, 2020 Subjective pt feeling well. no nausea or pain. Physical Exam Physical Exam: alert. nad. NGT in place. abd: soft. nd. nt. Results & Data ([facility]) Vital Signs (Past 12 Hours) Vital Signs Temp Pulse Resp BP Pulse Ox 04/04/20 07:48 36.7 C 55 L 16 114/60 96 04/04/20 04:43 36.8 C 54 L 18 121/62 96 04/03/20 23:34 37.0 C 64 18 142/86 H 95 PG Care Time/CCT Total # of Minutes Spent Total Time Spent with Patient: Total time spent is greater than 50% in coordination of care (as documented) at patient's floor/unit and/or counseling patient: Coding Level of Care Code 13932 Subseq Hosp Care Lvl 2 Diagnoses Small bowel obstruction K56.609
[2020-04-04] MEDS ORDERED: LORazepam 0.5 MG/1 ML VIAL IV PRN (11:16)
[2020-04-04] MEDS ORDERED: KETOROLAC TROMETHAMINE 15 MG/ML VIAL IM PRN (11:16)
--- NOTE | 2020-04-04 11:18 | Gastroenterology Progress Note ---
Date of Service April 04, 2020 Assessment & Plan (1) Small bowel obstruction: SBO likely secondary to Crohn's activity vs. scarring from prior Crohn's Disease Activity. Management by surgery. Would defer to surgery for direction on when to DC NG and when to advance diet. (2) Crohn disease: Crohn's has been managed by Dr. Crandall and he recently underwent EGD, colonoscopy with findings of terminal ileus and distal colon Crohn's activity. 1. Solumedrol 20mg IV Q 8hrs. 2. On discharge: Prednisone 40mg hayes x 1 wk, 30mg daily x 1 wk, 20mg daily x 1 wk, 15mg daily x 1 wk, 10mg daily x 1 wk, 5mg daily x 1 wk. Will arrange OP GI f/u with Dr. Crandall for ongoing management of Crohn's. 3. At this time, no indication to repeat endoscopy or imaging at this time. Admission and Anticipated Discharge Date Admission Date: April 02, 2020 Supervising Physician Co-Signing Physician Notes I have personally seen and examined the patient with FLAQUITA Bay. Her note reflects my exam and findings. I agree with her impression and plan. Pt is improving. NGT clamped. Thong Jamison M.D. Subjective Mr. Soria is a 74 yr old male with Crohn's (managed by Dr. Crandall) admitted on 04/02 for SBO. Clinically responding to solumedrol IV and bowel rest. Denies any abd pain, N/V today. Has NG clamped. Review of Systems Review of Systems: ROS: Gen: + weight loss Eyes: No eye redness, or pain, no recent vision changes Resp: No SOB, no cough Cardio: No palpitations/irregular beats, no chest pain GI: See HPI : Denies pain on urination Skin: No jaundice, itching or new rashes Physical Exam Constitutional: WD/WN, vitals as above Eyes: PERRL, conjunctivae normal, anicteric sclerae ENMT: external ear and nose normal, oropharynx normal NG in left nares Neck: trachea midline, no thyromegaly Respiratory: normal respiratory effort, lungs clear to auscultation Cardiovascular: RRR, no murmur, no edema Gastrointestinal (Abdomen): Inspection/Auscultation: normal bowel sounds; abdomen not distended Percussion/Palpation: abdomen soft; abdomen nontender Skin: no rashes, warm and dry Neurologic: PERRL, EOMI, accommodation nl, no face palsy, no dysarthria Psychiatric: A+Ox3, euthymic affect Lymphatic: no cervical or axillary lymphadenopathy Results & Data ([facility]) Vital Signs (Past 12 Hours) Vital Signs Temp Pulse Pulse Resp BP Pulse Ox 04/04/20 08:00 54 L 04/04/20 07:48 36.7 C 55 L 16 114/60 96 04/04/20 04:43 36.8 C 54 L 18 121/62 96 04/03/20 23:34 37.0 C 64 18 142/86 H 95 (1) Crohn disease Digestive disease complication type: with intestinal obstruction Gastrointestinal tract location: unspecified location Qualified Code(s): K50.912 - Crohn's disease, unspecified, with intestinal obstruction
[2020-04-04] MEDS ORDERED: LORazepam 0.25 MG/0.5 ML VIAL IV PRN (11:41)
--- NOTE | 2020-04-04 11:52 | Hospitalist Progress Note ---
Date of Service April 04, 2020 Assessment & Plan (1) Small bowel obstruction: Symptomatic since last evening CT of the abdomen and pelvis revealed high-grade small bowel obstruction with transition point involving a loop of ileum, likely secondary to adhesions versus small bowel stricture SBO could be due crohn's disease vs adhesions NGT currently clamped KUB this AM noted Will try clears later. If tolerated, will discontinue NGT and keep on clears for today Symptoms improving Due to leukocytosis, was started on iv zosyn on admission. Leukocytosis improved. No other signs of infection. Will discontinue for now Surgery on board (2) Crohn disease: History of Crohn's disease without any treatment for the last 9 years EGD and colonoscopy about 5 weeks ago were unremarkable CT of the chest and abdomen about 6 weeks ago were unremarkable as well Continue IV methylpred for now F/u with GI about possible steroid taper on discharge (3) Lumbar disc herniation: History of lumbar disc herniation and recent course of Medrol Dosepak Has been on gabapentin for pain control (4) Dyslipidemia: Resume statin when po intake is resume (5) A-fib: Atrial fibrillation not on any anticoagulation EKG shows NSR Complains of insomnia at night Since still NPO, will give 0.25mg ativan HS if needed for insomnia Status Full Admission and Anticipated Discharge Date Admission Date: April 02, 2020 Subjective Patient seen and examined No nausea, vomiting, abd pain No fevers, chills No chest pain, Cough, SOB Physical Exam Constitutional: + well hydrated; no acute distress Eyes: PERRL, conjunctivae normal, anicteric sclerae ENMT: NGT in situ clamped Respiratory: normal respiratory effort, lungs clear to auscultation Cardiovascular: RRR, no murmur, no edema Gastrointestinal (Abdomen): normal bowel sounds, soft, nontender, no hepatosplenomegaly Musculoskeletal: no cyanosis or clubbing, extremities motor strength 5/5 Neurologic: PERRL, EOMI, accommodation nl, no face palsy, no dysarthria Psychiatric: A+Ox3, euthymic affect Results & Data Results & Data ([place]) Vital Signs (Past 12 Hours) Vital Signs Temp Pulse Pulse Resp BP Pulse Ox 04/04/20 08:00 54 L 04/04/20 07:48 36.7 C 55 L 16 114/60 96 04/04/20 04:43 36.8 C 54 L 18 121/62 96 Laboratory Results Laboratory Results - last 24 hr 04/04/20 04/04/20 06:00 06:00 WBC 13.65 H RBC 3.77 L Hgb 11.8 L Hct 35.2 L MCV 93.4 MCH 31.3 MCHC 33.5 RDW Std Deviation 47.4 H RDW Coeff of Chang 13.8 Plt Count 229 MPV 10.2 Sodium 144 Potassium 4.0 Chloride 113 H Carbon Dioxide 28 Anion Gap 3.0 BUN 22 H Creatinine 0.67 Est Cr Clr Drug Dosing 91.2 Est GFR ( Amer) 111.3 Est GFR (Non-Af Amer) 96.0 BUN/Creatinine Ratio 32.7 H Glucose 106 H Calcium 8.6 (1) Crohn disease Digestive disease complication type: with intestinal obstruction Gastrointestinal tract location: unspecified location Qualified Code(s): K50.912 - Crohn's disease, unspecified, with intestinal obstruction
[2020-04-05] MEDS: NSS + 20MEQ KCL 20 MEQ/1,000 ML BAG IV SCH ×2 (03:04→13:48)
[2020-04-05 03:12] LABS: Hematocrit (blood only) 38.9 % (42-52); Hemoglobin 13.3 g/dL (14.0-18.0); Mean Corpuscular Hemoglobin 32.2 pg (25-34); Mean Corpuscular Hgb Conc 34.2 g/dL (32-36); Mean Corpuscular Volume 94.2 fL (80-100); Mean Platelet Volume 10.1 fL (7.4-10.4); Platelet Count 263 K/uL (130-400); RDW Coefficient of Variation 13.7 % (11.5-14.5); Red Blood Count 4.13 M/uL (4.7-6.1); White Blood Count 16.18 K/uL (4.8-10.8)
[2020-04-05 03:29] LABS: BUN Creatinine Ratio 22.8 (10-20); Calcium 9.2 mg/dl (8.5-10.1); Creatinine Clr Calc Pharmacy 89.9 ml/min; Est GFR (African American) 110.6; Est GFR (Non-African American) 95.4
[2020-04-05] MEDS: methylPREDNISolone 20 MG in SYRINGE 0 ML IV SCH (08:06)
[2020-04-05] MEDS: FAMOTIDINE 20 MG in SYRINGE 3 ML IV SCH (08:07)
--- NOTE | 2020-04-05 08:20 | Surgery Progress Note ---
Date of Service April 05, 2020 Assessment & Plan (1) Small bowel obstruction: Pt with history of Crohn's here with SBO yesterday KUB showed a non-obstructive bowel/gas pattern;pt subsequently tolerated an NGT clamping trial & diet was adv'd to clears. pt has since been tolerating clears without any issues Pt continues to pass flatus, but denies any BM's yet On exam pts abd is soft/non-distended, reports only mild pressure/discomfort francis-umbilically He continues on steroid regimen per GI for his Crohn's This AM he has been ordered for full liquid diet- agree with advancement as above. doing well. no abdominal pain or n/v. will advance to low residue diet. from my standpoint, if he tolerates low residue diet he could be d/c'd home soon. Admission and Anticipated Discharge Date Admission Date: April 02, 2020 Subjective Patient states he is feeling well. He had an episode of chest tightness overnight and was found to be in afib, that had self resolved. He tolerated clears yesterday without nausea/vomiting or increased abdominal pain. Reports passing flatus, but no BM yet. Physical Exam Physical Exam: awake/alert, sitting up in bed eating breakfast Respiratory: normal respiratory effort Gastrointestinal (Abdomen): Inspection/Auscultation: abdomen not distended Percussion/Palpation: + abdomen tender (minimal pressure/discomfort to palpation francis-umbilically) and abdomen soft Results & Data ([facility]) Vital Signs (Past 12 Hours) Vital Signs Temp Pulse Resp BP Pulse Ox 04/05/20 07:58 36.8 C 49 L 18 109/56 L 98 04/05/20 02:27 36.6 C 62 16 165/70 H 95 04/04/20 23:17 36.9 C 53 L 16 126/69 95 04/04/20 20:14 36.9 C 54 L 20 152/85 H 99 PG Care Time/CCT Total # of Minutes Spent Total Time Spent with Patient: Total time spent is greater than 50% in coordination of care (as documented) at patient's floor/unit and/or counseling patient: Coding Level of Care Code 02975 Subseq Hosp Care Lvl 2 Diagnoses Small bowel obstruction K56.609
[2020-04-05] MEDS ORDERED: ATORVASTATIN 10 MG TAB PO SCH (09:00)
[2020-04-05] MEDS ORDERED: ATENOLOL 25 MG TABLET PO SCH (09:00)
[2020-04-05] MEDS ORDERED: TERAZOSIN HCL 1 MG CAP PO SCH (09:00)
--- NOTE | 2020-04-05 10:21 | Hospitalist Progress Note ---
Date of Service April 05, 2020 Assessment & Plan (1) Small bowel obstruction: Symptomatic evening prior to admission CT of the abdomen and pelvis revealed high-grade small bowel obstruction with transition point involving a loop of ileum, likely secondary to adhesions versus small bowel stricture SBO could be due crohn's disease vs adhesions NGT removed now, pt tolerates PO clear liquid diet, will advance Clinically much improved, no abd. pain, passing flatus but no BM yet Due to leukocytosis, was started on iv zosyn on admission. Leukocytosis improved. No other signs of infection. Discontinued for now Surgery and GI following Per GI - recommend prednisone taper on discharge (2) Crohn disease: History of Crohn's disease without any treatment for the last 9 years EGD and colonoscopy about 5 weeks ago were unremarkable CT of the chest and abdomen about 6 weeks ago were unremarkable as well Continue IV methylprednisolone for now - Per GI - recommend steroid taper on discharge - Prednisone 40mg hayes x 1 wk, 30mg daily x 1 wk, 20mg daily x 1 wk, 15mg daily x 1 wk, 10mg daily x 1 wk, 5mg daily x 1 wk. Will arrange OP GI f/u with Dr. Crandall for ongoing management of Crohn's. (3) Lumbar disc herniation: History of lumbar disc herniation and recent course of Medrol Dosepak Has been on gabapentin for pain control (4) Dyslipidemia: Resumed statin (5) A-fib: Atrial fibrillation not on any anticoagulation EKG shows NSR on admission Episode of Afib w/ RVR overnight while NPO and not on home atenolol Atenolol resumed Complains of insomnia at night Ambien HS if needed for insomnia Status Full Admission and Anticipated Discharge Date Admission Date: April 02, 2020 Subjective Patient states he is feeling well. He had an episode of chest tightness overnight and was found to be in afib w/ RVR home atenolol was resumed (held when pt NPO). He tolerated clears yesterday without nausea/vomiting or increased abdominal pain. Reports passing flatus, but no BM yet. Will advance diet, will further discuss w/ surgery. Review of Systems Review of Systems: All systems reviewed & are unremarkable except as noted in HPI & below Constitutional: no fever and no chills Respiratory: no cough and no dyspnea Cardiovascular: no chest pain and no palpitations Gastrointestinal: no abdominal pain, no nausea and no vomiting Physical Exam Physical Exam: Constitutional: + well hydrated; no acute distress Eyes: PERRL, EOMI, conjunctivae normal, anicteric sclerae ENMT: NGT removed Respiratory: normal respiratory effort, lungs clear to auscultation Cardiovascular: RRR, no murmur, no edema Gastrointestinal (Abdomen): normal bowel sounds, soft, nontender Musculoskeletal: no cyanosis or clubbing, extremities motor strength 5/5 Neurologic: PERRL, EOMI, no face palsy, no dysarthria, moves extremities spontaneously Psychiatric: A+Ox3, euthymic affect Results & Data Results & Data ([facility]) Vital Signs (Past 12 Hours) Vital Signs Temp Pulse Resp BP Pulse Ox 04/05/20 07:58 36.8 C 49 L 18 109/56 L 98 04/05/20 02:27 36.6 C 62 16 165/70 H 95 04/04/20 23:17 36.9 C 53 L 16 126/69 95 Laboratory Results 04/05/20 04/05/20 04/05/20 Range/Units 08:53 03:04 03:04 WBC (4.8-10.8) K/uL RBC (4.7-6.1) M/uL Hgb (14.0-18.0) g/dL Hct (42-52) % MCV (80-100) fL MCH (25-34) pg MCHC (32-36) g/dL RDW Std Deviation (36.4-46.3) fL RDW Coeff of Chang (11.5-14.5) % Plt Count (130-400) K/uL MPV (7.4-10.4) fL Sodium 144 (136-145) mmol/L Potassium 4.0 (3.5-5.1) mmol/L Chloride 111 H (98-107) mmol/L Carbon Dioxide 28 (21-32) mmol/L Anion Gap 5.0 (3-11) BUN 15 (7-18) mg/dl Creatinine 0.68 (0.6-1.4) mg/dl Est Cr Clr Drug Dosing 89.9 ml/min Est GFR ( Amer) 110.6 Est GFR (Non-Af Amer) 95.4 BUN/Creatinine Ratio 22.8 H (10-20) Glucose 125 H (70-99) mg/dl Calcium 9.2 (8.5-10.1) mg/dl Troponin I < 0.015 < 0.015 (0-0.045) ng/ml 04/05/20 Range/Units 03:04 WBC 16.18 H (4.8-10.8) K/uL RBC 4.13 L (4.7-6.1) M/uL Hgb 13.3 L (14.0-18.0) g/dL Hct 38.9 L (42-52) % MCV 94.2 (80-100) fL MCH 32.2 (25-34) pg MCHC 34.2 (32-36) g/dL RDW Std Deviation 47.0 H (36.4-46.3) fL RDW Coeff of Chang 13.7 (11.5-14.5) % Plt Count 263 (130-400) K/uL MPV 10.1 (7.4-10.4) fL Sodium (136-145) mmol/L Potassium (3.5-5.1) mmol/L Chloride (98-107) mmol/L Carbon Dioxide (21-32) mmol/L Anion Gap (3-11) BUN (7-18) mg/dl Creatinine (0.6-1.4) mg/dl Est Cr Clr Drug Dosing ml/min Est GFR ( Amer) Est GFR (Non-Af Amer) BUN/Creatinine Ratio (10-20) Glucose (70-99) mg/dl Calcium (8.5-10.1) mg/dl Troponin I (0-0.045) ng/ml Medications Administered Current Inpatient Medications Atenolol (Atenolol 25 Mg Tablet) 25 mg PO DAILY ADELITA Stop: 05/05/20 08:59 Last Admin: 04/05/20 08:06 Dose: 25 mg Documented by: Atorvastatin Calcium (Atorvastatin 10 Mg Tab) 10 mg PO DAILY ADELITA Stop: 05/05/20 08:59 Last Admin: 04/05/20 08:06 Dose: 10 mg Documented by: Gabapentin (Gabapentin 300 Mg Cap) 300 mg PO HS ADELITA Stop: 05/05/20 20:59 Potassium Chloride/Sodium Chloride (Normal Saline W/20 Meq Kcl) 20 meq in 1,000 mls @ 100 mls/hr IV .Q10H ADELITA Stop: 05/02/20 16:44 Last Admin: 04/05/20 03:04 Dose: 100 mls/hr Documented by: Methylprednisolone 20 mg/ (Syringe) 0.32 mls @ 1.5 mls/min IV BID ADELITA Stop: 05/02/20 20:59 Last Admin: 04/05/20 08:06 Dose: 1.5 mls/min Documented by: Famotidine 20 mg/ Syringe 5 mls @ 2.5 mls/min IV DAILY ADELITA Stop: 05/03/20 15:29 Last Admin: 04/05/20 08:07 Dose: 2.5 mls/min Documented by: Lorazepam (Ativan) 0.25 mg in 0.5 mls @ 0.5 mls/min IV HS PRN PRN Reason: Insomnia Stop: 04/05/20 11:40 Last Admin: 04/04/20 23:19 Dose: 0.5 mls/min Documented by: Ketorolac Tromethamine (Ketorolac Tromethamine 15 Mg/Ml Vial) 15 mg IM Q8H PRN PRN Reason: Pain Stop: 04/09/20 11:15 Last Admin: 04/04/20 12:47 Dose: 15 mg Documented by: Morphine Sulfate (Morphine Sulfate 2 Mg/Ml Carp) 2 mg IV Q3H PRN PRN Reason: Chest Pain Stop: 04/16/20 16:36 Last Admin: 04/04/20 08:22 Dose: 2 mg Documented by: Ondansetron HCl (Ondansetron Inj 2 Mg/Ml 2 Ml Vial) 4 mg IV Q6H PRN PRN Reason: Nausea Stop: 05/02/20 16:36 Last Admin: 04/03/20 13:22 Dose: 4 mg Documented by: Phenol (Chloraseptic 1.4% Soln 180 Ml Btl) 2 sprays MT Q2HWA PRN PRN Reason: Pain Stop: 05/02/20 20:32 Last Admin: 04/02/20 21:32 Dose: 2 sprays Documented by: Terazosin HCl (Terazosin Hcl 1 Mg Cap) 1 mg PO BID ADELITA Stop: 05/05/20 08:59 Last Admin: 04/05/20 08:05 Dose: Not Given Documented by: Zolpidem Tartrate (Zolpidem Tartrate 5 Mg Tab) 5 mg PO HS PRN PRN Reason: Sleep Stop: 05/02/20 16:36 Last Admin: 04/04/20 23:52 Dose: 5 mg Documented by: (1) Crohn disease Digestive disease complication type: with intestinal obstruction Gastrointestinal tract location: unspecified location Qualified Code(s): K50.912 - Crohn's disease, unspecified, with intestinal obstruction
[2020-04-05] MEDS ORDERED: Nursing to Pharmacy Communication SCH ×2 (12:45→14:30)
--- NOTE | 2020-04-05 14:21 | Electrocardiogram Report ---
Test Reason : Blood Pressure : / mmHG Vent. Rate : 131 BPM Atrial Rate : 119 BPM P-R Int : 000 ms QRS Dur : 082 ms QT Int : 308 ms P-R-T Axes : 000 000 -68 degrees QTc Int : 454 ms Atrial fibrillation with rapid ventricular response Marked ST abnormality, possible anterior subendocardial injury Abnormal ECG When compared with ECG of 03-APR-2020 06:26, Atrial fibrillation has replaced Sinus rhythm Vent. rate has increased BY [address] now depressed in Inferior leads ST now depressed in Anterior leads T wave inversion now evident in Inferior leads Confirmed by Frederick Finley ([id number]) on 04/05/2020 2:20:52 PM Referred By: REFERRED SELF Confirmed By:Luis Finley
[2020-04-05] MEDS ORDERED: POLYETHYLENE (MIRALAX) 17 GM PACK PO PRN (14:31)
--- NOTE | 2020-04-05 15:35 | Discharge Summary ---
Date of Service April 05, 2020 Admission HPI Per Admitting Provider He is a 74-year-old male with significant past medical history of Crohn's disease-inactive for the last 9 years, hypertension, hyperlipidemia, history of atrial fibrillation and lumbar disc herniation has been complaining of abdominal discomfort with distention since last evening. His symptoms started following suffer last evening and discomfort continued throughout the night. He has had nausea with 2 episodes of vomiting until he came to the emergency room. He has had 1 bowel movement since last night. He denies any fever and/or chills. Denies any abnormalities in his bowel movement. No other extraintestinal manifestations of Crohn's. Denies any chest pain, palpitation or shortness of breath. Noted to have high-grade small bowel obstruction on CT of the abdomen and pelvis and following that GI and surgery services were consulted and he was admitted to telemetry unit for continuation of care. Admission Exam Per Admitting Provider Physical Exam: Lying in bed comfortably but anxious Constitutional: well developed, well nourished and + acute distress (Abdominal distention and discomfort with nausea); not ill appearing Eyes: PERRL, conjunctivae normal, anicteric sclerae ENMT: external ear and nose normal, oropharynx normal Neck: trachea midline, no thyromegaly Respiratory: no respiratory distress Auscultation: lungs clear to auscultation bilaterally Cardiovascular: Rate/Rhythm: regular rate and regular rhythm Heart Sounds: no murmur Extremities: no edema Gastrointestinal (Abdomen): Inspection/Auscultation: + abdomen distended and normal bowel sounds Percussion/Palpation: + abdomen tender (Epigastrium) and abdomen soft Musculoskeletal: No acute arthritis in any joint Neurologic: Alert, awake and oriented x3. No focal sensory and/or motor deficit appreciated Psychiatric: A+Ox3, euthymic affect Lymphatic: no cervical or axillary lymphadenopathy Principal Diagnosis Small bowel obstruction, Crohn's disease Discharge Exam Constitutional: + well hydrated; no acute distress Eyes: PERRL, EOMI, conjunctivae normal, anicteric sclerae ENMT: NGT removed Respiratory: normal respiratory effort, lungs clear to auscultation Cardiovascular: RRR, no murmur, no edema Gastrointestinal (Abdomen): normal bowel sounds, soft, nontender Musculoskeletal: no cyanosis or clubbing, extremities motor strength 5/5 Neurologic: PERRL, EOMI, no face palsy, no dysarthria, moves extremities spontaneously Psychiatric: A+Ox3, euthymic affect Discharge Data Allergies Allergy/AdvReac Type Severity Reaction Status Date / Time mercaptopurine AdvReac PANCREATITI Unverified 04/02/20 15:33 S mesalamine [From Lialda] AdvReac PERICARDITI Unverified 04/02/20 15:31 S Consultations 04/02/20 15:44 Consult Gastroenterology Stat ED Decision to Admit Stat 04/02/20 16:25 Consult General Surgery Stat Ordered Studies 04/02/20 14:21 CT abd pelvis IV con only Stat IMPRESSION: 1. High-grade small bowel obstruction with transition point involving a loop of ileum, likely secondary to adhesions versus small bowel stricture. 2. Reactive interloop edema with trace abdominal pelvic ascites. No pneumatosis or pneumoperitoneum. 3. Long segment wall thickening of the terminal ileum with wall thickening of the splenic flexure suggest acute inflammatory skin lesions associated with patient's reported clinical history of Crohn's disease. 4. Nonobstructing bilateral nephrolithiasis. 5. Additional findings as above. Hospital Course (1) Small bowel obstruction: Symptomatic evening prior to admission CT of the abdomen and pelvis revealed high-grade small bowel obstruction with transition point involving a loop of ileum, likely secondary to adhesions versus small bowel stricture SBO could be due crohn's disease vs adhesions NGT removed now, pt tolerates PO clear liquid diet, will advance Clinically much improved, no abd. pain, passing flatus but no BM yet Due to leukocytosis, was started on iv zosyn on admission. Leukocytosis improved. No other signs of infection. Discontinued for now Surgery and GI following Per GI - recommend prednisone taper on discharge, follow up with GI as outpt (2) Crohn disease: History of Crohn's disease without any treatment for the last 9 years EGD and colonoscopy about 5 weeks ago were unremarkable CT of the chest and abdomen about 6 weeks ago were unremarkable as well Continue IV methylprednisolone for now - Per GI - recommend steroid taper on discharge - Prednisone 40mg hayes x 1 wk, 30mg daily x 1 wk, 20mg daily x 1 wk, 15mg daily x 1 wk, 10mg daily x 1 wk, 5mg daily x 1 wk. Will arrange OP GI f/u with Dr. Crandall for ongoing management of Croh n's. Will send Rx for 3 weeks of prednisone taper, please - PCP or GI, prescribe the rest of the taper at the next visit (3) Lumbar disc herniation: History of lumbar disc herniation and recent course of Medrol Dosepak Has been on gabapentin for pain control (4) Dyslipidemia: Resumed statin (5) A-fib: Atrial fibrillation not on any anticoagulation EKG shows NSR on admission Episode of Afib w/ RVR overnight while NPO and not on home atenolol Atenolol resumed Complains of insomnia at night Ambien HS if needed for insomnia Total Time Total Time Spent Total Time Spent (In Minutes): 40 Total Time Includes: Examination of the Patient, Discharge Planning, Medication Reconciliation and Communication With Other Providers Discharge Plan Discharge Items Patient Disposition: Home - Self-Care Reason For Visit: HIGH GRD SBO,CROHNS Discharge Diagnosis: Small bowel obstruction, Crohn's disease Activity: Per Instructions section Non-emergency contact: Primary Care Provider and File Clerk Call non-emergency contact if: you have any medication questions and your symptoms worsen Follow-up/Referrals: Maria T Green DO [Primary Care Provider] - (Date & Time 04/10/2020 11:20 AM Provider Maria T Green DO Department [facility] ) Diet: Low Fiber Diet Comment: Low fiber/ low residue diet for next 1-2 weeks Addtl Attending Provider Instructions: Follow up with primary care doctor on 04/10/2020. You will also need to follow up with your accounts receivable accountant. Prednisone taper is recommended for you, please take 40 mg for 1 week, then 30 mg for 1 week and then 20 mg for 1 week. This prescription was already sent to your pharmacy. However your taper is longer, please have your primary care doctor or accounts receivable accountant prescribe you the rest of the prednisone taper during your next follow up appointment. Pending Studies at Discharge: No Stand-Alone Forms: My [employer], Smoking Cessation Medications and DC Order Prescriptions: New zolpidem 5 mg Tablet 5 mg PO HS PRN (Reason: insomnia) Qty: 5 RF: 0 prednisone 10 mg tablet 10 mg PO UD Qty: 63 RF: 0 Continued atorvastatin 10 mg tablet 10 mg PO DAILY RF: 0 atenolol 25 mg tablet 25 mg PO DAILY RF: 0 terazosin 1 mg capsule 1 mg PO BID RF: 0 multivitamin [Multiple Vitamin] Tablet 1 tab PO DAILY RF: 0 gabapentin 300 mg capsule 300 mg PO HS RF: 0 ondansetron HCl 8 mg tablet 8 mg PO DAILY PRN (Reason: Nausea) RF: 0 cholecalciferol (vitamin D3) 50 mcg (2,000 unit) Tablet 50 mcg PO DAILY RF: 0 Fish Oil Capsule 1,000 mg PO DAILY RF: 0 potassium chloride 10 mEq tablet extended release 10 meq PO BID RF: 0 lutein 10 mg Tablet 0 mg PO DAILY RF: 0 coenzyme Q10 [CoQ-10] 100 mg Capsule 100 mg PO DAILY RF: 0 aspirin 81 mg Tablet 81 mg PO DAILY RF: 0 Discharge Orders: Discharge Order (Routine); Ordered 04/05/20 Ordered By: Abebe Hoover Admission Data Admit Date/Time: 04/02/20 16:38 Attending Provider: Abebe Hoover Admit Provider: Melanie Bernstein Primary Care Provider: Maria T Green Other Providers: Penny Monique I. ; Dori Crandall ; Melanie Bernstein ; Greg Poole
[2020-04-05] MEDS ORDERED: GABAPENTIN 300 MG CAP PO SCH (21:00)
[2020-04-06] MEDS ORDERED: FAMOTIDINE 20 MG TAB PO SCH (09:00)
== END 2020-04-05 16:29 | disposition home or self-care (01) | DRG 387 ==
LOC: ED 13:29 → 2E 16:38 → SUATTDRO 16:38 → 2E 17:42 → 2N 04-05 10:55